=== PATIENT | female | born 1960 | race Caucasian/White ===

== ENCOUNTER 2020-08-24 07:49 | Outpatient (REF) | payer BC, SELFPAY | END 2020-08-24 07:50 | disposition home or self-care (01) | LOC: HO.LAB 07:49 | PROVIDERS: Visit Provider Internal Medicine | DX: Z20.828 Contact with and (suspected) exposure to other viral communicable diseases (principal) | CPT/HCPCS: C9803; U0003 ==

== ENCOUNTER 2023-01-10 18:44 | Emergency (ER) | payer BC, OTHER, SELFPAY ==
[2023-01-10 19:41] VITALS: BP 137/92; PULSE 65; RESP 18; O2SAT 98; BMI 24.9
--- NOTE | 2023-01-10 19:47 | ED.WOUNDLAC ---
HPI - Wound/Laceration General Chief Complaint: Wound/Laceration Stated Complaint: lip injury Time Seen by Provider: 01/10/23 20:29 Related Data Allergies Allergy/AdvReac Type Severity Reaction Status Date / Time acetaminophen [From Percocet] AdvReac Itching Verified 01/10/23 19:41 oxycodone [From Percocet] AdvReac Itching Verified 01/10/23 19:41 PMFSH Social History Social History Advance Directives: No Advance Directives Information Provided: No Physical Exam Vital Signs: Vital Signs: Last Vital Signs Pulse 65 01/10/23 19:41 Resp 18 01/10/23 19:41 BP 137/92 H 01/10/23 19:41 Pulse Ox 98 01/10/23 19:41 O2 Del Method Room Air 01/10/23 19:41 BMI result Body Mass Index 24.9 Course Course Course Narrative: This is a rapid medical exam. Deferred additional HPI, ROS, PE to primary provider. 62 yo female healthy here with lower lip laceration from a metal sugar cone which occurred at 330. Per patient site wont stop bleeding. On lower lip there is abrasion with active bleeding w/ no suturable laceration. Will apply topical TXA. VSS Medications Administered Discontinued Medications Generic Name Dose Route Start Last Admin Trade Name Freq PRN Reason Stop Dose Admin Tranexamic Acid 1,000 mg/ 60 mls @ 360 mls/hr 01/10/23 19:46 01/10/23 19:59 Sodium Chloride IV 01/10/23 19:55 360 mls/hr ONCE ONE Administration
[2023-01-10] MEDS: Tranexamic Acid 1,000 MG in 0.9 % Sodium Chloride 50 ML 360 MG IV (19:59)
--- NOTE | 2023-01-10 20:00 | PC.NURSE ---
FUNERAL COUNSELOR Arabella to RP room for introductions and assessment. Application of TXA recommended based upon findings. RN provided FUNERAL COUNSELOR with vial of TXA, she was noted to draw up some of the solution, put it on a 2x2 gauze and tapped the gauze to the patient's lower lip. Pt educated on plan to remain in the WR for approx 30 minutes to ensure the bleeding of her lower lip stops.
--- NOTE | 2023-01-10 20:31 | ED_ITS ---
HPI - Wound/Laceration General Chief Complaint: Wound/Laceration <Maria Antonia Valencia NP - Last Filed: 01/10/23 20:31> Stated Complaint: lip injury <Maria Antonia Valencia NP - Last Filed: 01/10/23 20:31> Time Seen by Provider: 01/10/23 20:29 <Maria Antonia Valencia NP - Last Filed: 01/10/23 20:31> Source: patient <KELLY Weeks - Last Filed: 01/11/23 02:08> Mode of arrival: ambulatory <KELLY Weeks - Last Filed: 01/11/23 02:08> Limitations: no limitations <KELLY Weeks - Last Filed: 01/11/23 02:08> History of Present Illness HPI narrative: 62-year-old female presents to the ED for lip laceration after eating ice cream cone. Patient states ice cream cone edges were sharpened cut her lip. Patient states bleeding was profuse. Patient denies any other trauma. <KELLY Weeks - Last Filed: 01/11/23 02:08> Related Data Allergies/Adverse Reactions: Allergies Allergy/AdvReac Type Severity Reaction Status Date / Time acetaminophen [From Percocet] AdvReac Itching Verified 01/10/23 19:41 oxycodone [From Percocet] AdvReac Itching Verified 01/10/23 19:41 <Maria Antonia Valencia NP - Last Filed: 01/10/23 20:31> Review of Systems Review of Systems: Lip laceration <KELLY Weeks - Last Filed: 01/11/23 02:08> Yes all other systems are reviewed and are negative <KELLY Weeks - Last Filed: 01/11/23 02:08> [facility] Social History Social History: Social History Advance Directives: No Advance Directives Information Provided: No <Maria Antonia Valencia NP - Last Filed: 01/10/23 20:31> Physical Exam Vital Signs: Vital Signs: Last Vital Signs Pulse 65 01/10/23 19:41 Resp 18 01/10/23 19:41 BP 137/92 H 01/10/23 19:41 Pulse Ox 98 01/10/23 19:41 O2 Del Method Room Air 01/10/23 19:41 BMI result Body Mass Index 24.9 <Maria Antonia Valencia NP - Last Filed: 01/10/23 20:31> Vital Signs: Last Vital Signs Pulse 65 01/10/23 19:41 Resp 18 01/10/23 19:41 BP 137/92 H 01/10/23 19:41 Pulse Ox 98 01/10/23 19:41 O2 Del Method Room Air 01/10/23 19:41 BMI result Body Mass Index 24.9 <KELLY Weeks Last Filed: 01/11/23 02:08> Const: General: cooperative, healthy appearing, comfortable, no acute distress, well developed, alert, awake and Physically active <KELLY Weeks Last Filed: 01/11/23 02:08> Orientation/consciousness: oriented to person, oriented to place, oriented to time and patient oriented x3 <KELLY Weeks Last Filed: 01/11/23 02:08> HEENT: Head: Yes normal to inspection, Yes No palpable skull fracture present, Yes normocephalic, Yes atraumatic and No abrasion <KELLY Weeks Last Filed: 01/11/23 02:08> Mouth/tongue images: 1. Very small cut more abrasion than a laceration. no active bleeding. <Maria Antonia Valencia NP - Last Filed: 01/10/23 20:31> Mouth/tongue images: 1. Very small cut more abrasion than a laceration. no active bleeding. <KELLY Weeks Last Filed: 01/11/23 02:08> Eyes: General: appearance normal, both eyes and all related structures <KELLY Weeks Last Filed: 01/11/23 02:08> Neck: Neck: Yes normal visual inspection, Yes full ROM, Yes no lymphadenopathy, Yes no meningeal signs, Yes trachea midline, Yes supple, No anterior neck swelling and No tender <KELLY Weeks Last Filed: 01/11/23 02:08> Chest: Chest palpation & inspection: normal inspection of the chest and normal palpation of entire chest wall <KELLY Weeks Last Filed: 01/11/23 02:08> Resp: Effort & Inspection: normal respiratory effort and able to speak in complete sentences <Demetrius Cosme, PA Rosa M Last Filed: 01/11/23 02:08> Auscultation: clear to auscultation bilaterally <KELLY Weeks Rosa M Last Filed: 01/11/23 02:08> Cardio: Jugular venous distension: no JVD <KELLY Weeks Rosa M Last Filed: 01/11/23 02:08> Heart sounds: S1 normal heart sound present and S2 normal heart sound present <KELLY Weeks Rosa M Last Filed: 01/11/23 02:08> GI: Inspection: Yes normal to inspection <KELLY Weeks Rosa M Last Filed: 01/11/23 02:08> Palpation (GI): Soft to palpation, not firm, nontender, no guarding and not rigid <KELLY Weeks Rosa M Last Filed: 01/11/23 02:08> : General: No CVA tenderness and Yes no CVA tenderness <KELLY Weeks Rosa M Last Filed: 01/11/23 02:08> Back/Spine/Pelvis: Back: no CVA tenderness, No CVA tenderness and No back tenderness <Demetrius Cosme, PA Rosa M Last Filed: 01/11/23 02:08> Skin: General skin exam: no rashes or lesions noted and elasticity normal <Demetrius Cosme, PA Rosa M Last Filed: 01/11/23 02:08> Neuro: General: oriented to person, oriented to place, oriented to time, patient oriented x3, gait normal, tone normal, moves all extremities, Normal light touch and pain sensation, no meningeal signs, no focal motor deficits, CN's II-XI intact bilaterally and normal sensation to monofilament <KELLY Weeks Rosa M Last Filed: 01/11/23 02:08> Extrem: General: Yes normal to inspection and Yes full ROM <KELLY Weeks Rosa M Last Filed: 01/11/23 02:08> Psych: Appearance: grossly normal, well kempt and not disheveled <KELLY Weeks Rosa M Last Filed: 01/11/23 02:08> Course Course Course Narrative: This is a rapid medical exam. Deferred additional HPI, ROS, PE to primary provider. 62 yo female healthy here with lower lip laceration from a metal sugar cone which occurred at 330. Per patient site wont stop bleeding. On lower lip there is abrasion with active bleeding w/ no suturable laceration. Will apply topical TXA. <Maria Antonia Valencia NP - Last Filed: 01/10/23 20:31> Medications Administered Discontinued Medications Generic Name Dose Route Start Last Admin Trade Name Freq PRN Reason Stop Dose Admin Tranexamic Acid 1,000 mg/ 60 mls @ 360 mls/hr 01/10/23 19:46 01/10/23 20:35 Sodium Chloride IV 01/10/23 19:55 Infused ONCE ONE Infusion <Maria Antonia Valencia NP - Last Filed: 01/10/23 20:31> Medications Administered Discontinued Medications Generic Name Dose Route Start Last Admin Trade Name Freq PRN Reason Stop Dose Admin Tranexamic Acid 1,000 mg/ 60 mls @ 360 mls/hr 01/10/23 19:46 01/10/23 20:35 Sodium Chloride IV 01/10/23 19:55 Infused ONCE ONE Infusion <KELLY Weeks - Last Filed: 01/11/23 02:08> Medical Decision Making Medical Decision Making MDM Narrative: 62-year-old female with lip laceration from eating icre cream cone. Patient denies any other trauma. patient not in any distress. Bleeding resolved with TMX. no laceratino repair needed. Patient uptodate with tetanus <KELLY Weeks Last Filed: 01/11/23 02:08> Differential Diagnosis Differential Diagnoses: The differential diagnosis associated with the presentation includes (lip laceration. uncontrolled bleeding. ) <KELLY Weeks Last Filed: 01/11/23 02:08> Discharge Plan Discharge Clinical Impression: Abrasion <Maria Antonia Valencia NP - Last Filed: 01/10/23 20:31> Patient Disposition: Home, Self-Care <Maria Antonia Valencia NP - Last Filed: 01/10/23 20:31> Instructions: Abrasion (ED), Laceration Without Closure (ED) <Maria Antonia Valencia NP - Last Filed: 01/10/23 20:31> Additional Instructions: Return to the ED immediately for profuse bleeding, weakness, lip swelling, redness, pus discharge, foul odor, fever, chills, or any other concerning symp toms. <Maria Antonia Valencia NP - Last Filed: 01/10/23 20:31> Interventions: ED Discharge Assessment Last Done: 01/10/23 21:51 <Maria Antonia Valencia NP - Last Filed: 01/10/23 20:31> Discharge Date/Time: 01/10/23 21:52 <Maria Antonia Valencia NP - Last Filed: 01/10/23 20:31> Print Language: Taiwanese <Maria Antonia Valencia NP - Last Filed: 01/10/23 20:31>
--- NOTE | 2023-01-10 20:35 | PC.NURSE ---
METEOROLOGY FACULTY MEMBER to at approx 2030, gauze removed and bleeding had ceased. Pt was encouraged to remain in the waiting room for an extra 5-10 minutes to ensure the area did not re-open. The pt was speaking with this RN as she was exiting the double doors to the waiting room and bleeding had restarted. RN discussed this with the METEOROLOGY FACULTY MEMBER and was advised to apply a new TXA soaked gauze to the lower lip. Pt remains at baseline, [place] [facility] [place] Report provided to Jenna COX
--- NOTE | 2023-01-10 20:36 | PC.NURSE ---
pt moved to exam room [facility] after 2nd application of TXA, bleeding controlled at this time
--- NOTE | 2023-01-10 21:10 | PC.NURSE ---
removed gauze from lower lip, aip is not bleeding at his time, call jenkins within reach [facility]
== END 2023-01-10 21:52 | disposition home or self-care (01) ==
PROVIDERS: Emergency Provider Emergency Medicine Emergency Medical Services
DX: S00.511A Abrasion of lip, initial encounter (principal); W45.8XXA Other foreign body or object entering through skin, initial encounter; Y93.89 Activity, other specified; Y92.9 Unspecified place or not applicable; Y99.9 Unspecified external cause status
CPT/HCPCS: 99283